=== PATIENT | male | born 1960 | race Two or more races ===

== ENCOUNTER 2018-09-22 20:10 | Inpatient (IN) | payer MEDICARE, MEDICAID ==
[~2018-09-22] VITALS: Ht 160 cm; Wt 65.3 kg
[2018-09-22 21:21] LABS: BASOPHILS % 0.6 % (0.0-2.0); EOSINOPHILS % 4.7 % (0.0-5.0); HEMATOCRIT. 37.9 % (42.0-52.0); HEMOGLOBIN. 12.2 g/dL (14.0-18.0); LYMPHOCYTES % 35.8 % (20.0-50.0); MEAN CORPUSCULAR HEMOGLOBIN 32.1 pg (28.0-32.0); MEAN CORPUSCULAR VOLUME 99.2 fL (80.0-94.0); MEAN PLATELET VOLUME 8.8 fl (7.4-10.4); MONOCYTES % 10.2 % (2.0-8.0); NEUTROPHILS % 48.7 % (40.0-76.0); PLATELET 185 x1000/uL (130-400); RED BLOOD CELL COUNT 3.82 mill/uL (4.7-6.1); RED CELL DISTRIBUTION WIDTH 15.1 % (11.6-14.6)
[2018-09-22 21:30] LABS: CHLORIDE 109 mEq/L (98-107)
[2018-09-22 21:34] LABS: ETHANOL BLOOD 296 mg/dL
[2018-09-22] MEDS ORDERED: SODIUM CHLORIDE 0.9% 1,000 ML IV ONE (22:11)
[2018-09-22] MEDS ORDERED: NALOXONE HCL 1 MG/ML 2ML VIAL IV ONE (22:15)
[2018-09-22 22:29] LABS: CLARITY URINE CLEAR (CLEAR); COLOR URINE YELLOW (YELLOW); KETONES URINE NEGATIVE (NEGATIVE); LEUKOCYTE ESTERASE URINE 2+ (NEGATIVE); NITRITE URINE POSITIVE (NEGATIVE); OCCULT BLOOD URINE 1+ (NEGATIVE); PROTEIN URINE NEGATIVE (NEGATIVE); SPECIFIC GRAVITY URINE 1.007 (1.005-1.030); UROBILINOGEN URINE 0.2 E.U./dL (0.2-1.0)
[2018-09-22 22:40] LABS: *AMPHETAMINES SCREEN URINE PRESUMTIVE POSITIVE (NEGATIVE); *BARBITURATES SCREEN URINE NEGATIVE (NEGATIVE); *BENZODIAZEPINES SCREEN URINE NEGATIVE (NEGATIVE); *COCAINE SCREEN URINE PRESUMTIVE POSITIVE (NEGATIVE); METHADONE URINE SCREEN NEGATIVE (NEGATIVE); OPIATES URINE SCREEN NEGATIVE (NEGATIVE)
[2018-09-22 22:41] LABS: CANNABINOID URINE SCREEN NEGATIVE (NEGATIVE); PHENCYCLIDINE URINE SCREEN NEGATIVE (NEGATIVE)
[2018-09-22] MEDS ORDERED: SODIUM CHLORIDE 0.9% 1000ML BAG (SEPSIS BOLUS) IV ONE (23:00)
[2018-09-22] MEDS ORDERED: CEFTRIAXONE 1 G PREMIX 50 ML IV ONE (23:00)
[2018-09-22] MEDS ORDERED: DIPHENHYDRAMINE 50MG/ML VIAL IV PRN (23:30)
[2018-09-22] MEDS ORDERED: ACETAMINOPHEN 325MG TABLET PO PRN (23:30)
[2018-09-22] MEDS ORDERED: LORAZEPAM 2MG/ML CPJ IV PRN (23:30)
[2018-09-22] MEDS ORDERED: HYDROCODONE/ACETAMINOPHEN 5/325MG TABLET PO PRN (23:30)
[2018-09-22] MEDS ORDERED: ONDANSETRON HCL 4MG/2ML INJ IV PRN (23:30)
[2018-09-22] MEDS ORDERED: DOCUSATE SODIUM 100MG CAPSULE PO PRN (23:30)
[2018-09-22] MEDS ORDERED: GUAIFENESIN 200MG/10ML SUGAR FREE UDC PO PRN (23:30)
[2018-09-22] MEDS ORDERED: MAGNESIUM/ALUMINUM HYDROXIDE/SIMETHICONE 30ML UDC PO PRN (23:30)
[2018-09-22] MEDS ORDERED: HYDROMORPHONE HCL/PF 2MG/ML CPJ IV PRN (23:30)
[2018-09-22] MEDS ORDERED: CLONIDINE 0.1MG TABLET PO PRN (23:30)
[2018-09-22] MEDS ORDERED: IPRATROPIUM/ALBUTEROL 0.5-3(2.5)MG/3ML NEB INH PRN (23:30)
[2018-09-23] VITALS (8 sets, daily range): BP systolic 124–157; BP diastolic 80–99
[2018-09-23] MEDS: DEXT 5%/0.45% NACL 1000ML 1,000 ML IV SCH ×2 (00:58→16:03)
[2018-09-23] MEDS ORDERED: CEFTRIAXONE 1 G PREMIX 50 ML IV SCH ×2 (01:00→21:00)
[2018-09-23] MEDS: SODIUM CHLORIDE 0.9% INJ 3ML FLUSH IVF SCH ×3 (05:49→21:53)
[2018-09-23 05:55] LABS: CHLORIDE 114 mEq/L (98-107)
[2018-09-23 06:04] LABS: CREATINE KINASE 303 IU/L (39-308); T4 FREE 0.88 ng/dL (0.76-1.46)
[2018-09-23 06:05] LABS: BASOPHILS % 0.9 % (0.0-2.0); EOSINOPHILS % 5.5 % (0.0-5.0); HEMATOCRIT. 31.6 % (42.0-52.0); HEMOGLOBIN. 10.5 g/dL (14.0-18.0); LYMPHOCYTES % 39.2 % (20.0-50.0); MEAN CORPUSCULAR HEMOGLOBIN 32.6 pg (28.0-32.0); MEAN CORPUSCULAR VOLUME 98.4 fL (80.0-94.0); MEAN PLATELET VOLUME 9.2 fl (7.4-10.4); MONOCYTES % 12.8 % (2.0-8.0); NEUTROPHILS % 41.6 % (40.0-76.0); PLATELET 152 x1000/uL (130-400); RED BLOOD CELL COUNT 3.21 mill/uL (4.7-6.1); RED CELL DISTRIBUTION WIDTH 15.1 % (11.6-14.6)
[2018-09-23 06:09] LABS: CREATINE KINASE MB FRACTION 3.1 ng/mL (0.5-3.6)
[2018-09-23] MEDS: ENOXAPARIN 40MG/0.4ML SYR SUBCUT SCH (08:53)
[2018-09-23 17:20] LABS: CREATINE KINASE 267 IU/L (39-308)
[2018-09-23 17:21] LABS: CREATINE KINASE MB FRACTION 3.1 ng/mL (0.5-3.6)
[2018-09-24] VITALS: BP 144/89
[2018-09-24 04:00] VITALS: BP 147/99
[2018-09-24 08:00] VITALS: BP 147/100
[2018-09-24] MEDS: ENOXAPARIN 40MG/0.4ML SYR SUBCUT SCH (08:35)
[2018-09-24 09:52] VITALS: BP 147/100
== END 2018-09-24 10:30 | disposition hospice, home (50) | DRG 92 ==
LOC: ER 20:10 → 6WST 22:50 → EDBEDREQTM 22:53 → EDBEDREQ 22:53 → ENRESERV 23:18
PROVIDERS: ADMIT Internal Medicine; ATTEND Internal Medicine
DX: G93.1 Anoxic brain damage, not elsewhere classified (principal); N39.0 Urinary tract infection, site not specified; C61 Malignant neoplasm of prostate; D64.9 Anemia, unspecified; F19.10 Other psychoactive substance abuse, uncomplicated; I10 Essential (primary) hypertension; I25.10 Atherosclerotic heart disease of native coronary artery without angina pectoris; Z51.5 Encounter for palliative care; Z85.46 Personal history of malignant neoplasm of prostate
CPT/HCPCS: 36415; 80305; 82550; 82553; 82962; 83605; 84439; 84443; 84484; 93005; 96374; 96375; 99291; G0482; J0696; J1650; J2310; J7030; J7040

== ENCOUNTER 2018-12-16 08:39 | Emergency (ER) | payer MEDICARE, MEDICAID ==
[~2018-12-16] VITALS: Ht 170.2 cm; Wt 73.0 kg
[2018-12-16 08:52] VITALS: BP 114/76
== END 2018-12-16 10:40 | disposition left against medical advice (07) ==
LOC: ER 08:39
DX: Z53.21 Procedure and treatment not carried out due to patient leaving prior to being seen by health care provider (principal); Z46.6 Encounter for fitting and adjustment of urinary device

== ENCOUNTER 2019-07-23 22:57 | Emergency (ER) | payer MEDICARE, MEDICAID ==
[~2019-07-23] VITALS: Ht 170.2 cm; Wt 77.0 kg
[2019-07-23 23:34] VITALS: BP 169/103
[2019-07-24] MEDS ORDERED: KETOROLAC 30MG/ML VIAL IM ONE (00:30)
[2019-07-24] MEDS ORDERED: CYCLOBENZAPRINE 10MG TABLET PO ONE (00:30)
== END 2019-07-24 01:16 | disposition home or self-care (01) ==
LOC: ER 22:57
DX: M54.5 Low back pain (principal); M54.2 Cervicalgia; I10 Essential (primary) hypertension; I25.2 Old myocardial infarction; Z87.81 Personal history of (healed) traumatic fracture; Z86.73 Personal history of transient ischemic attack (TIA), and cerebral infarction without residual deficits; Z85.46 Personal history of malignant neoplasm of prostate
CPT/HCPCS: 96372; 99283; J1885

== ENCOUNTER 2019-09-23 08:24 | Inpatient (IN) | payer MEDICARE, MEDICAID ==
[~2019-09-23] VITALS: Ht 170.2 cm; Wt 80.3 kg
[2019-09-23] MEDS ORDERED: SODIUM CHLORIDE 0.9% 1,000 ML IV ONE (09:23)
[2019-09-23 10:09] LABS: HEMATOCRIT. 30.4 % (42.0-52.0); HEMOGLOBIN. 9.5 g/dL (14.0-18.0); MEAN CORPUSCULAR HEMOGLOBIN 23.3 pg (28.0-32.0); MEAN CORPUSCULAR VOLUME 74.7 fL (80.0-94.0); MEAN PLATELET VOLUME 9.5 fl (7.4-10.4); PLATELET 131 x1000/uL (130-400); RED BLOOD CELL COUNT 4.06 mill/uL (4.7-6.1); RED CELL DISTRIBUTION WIDTH 22.3 % (11.6-14.6)
[2019-09-23 10:17] LABS: CHLORIDE 109 mEq/L (98-107); INR 1.1; PROTHROMBIN TIME 10.8 sec (9.6-11.0)
[2019-09-23 10:19] LABS: CLARITY URINE CLOUDY (CLEAR); COLOR URINE YELLOW (YELLOW); KETONES URINE NEGATIVE (NEGATIVE); LEUKOCYTE ESTERASE URINE 3+ (NEGATIVE); NITRITE URINE POSITIVE (NEGATIVE); OCCULT BLOOD URINE TRACE (NEGATIVE); PH URINE 7.5 (4.5-8.0); PROTEIN URINE NEGATIVE (NEGATIVE); SPECIFIC GRAVITY URINE 1.009 (1.005-1.030)
[2019-09-23] MEDS ORDERED: CEFTRIAXONE 1 G PREMIX 50 ML IV ONE (10:30)
[2019-09-23] MEDS ORDERED: IOHEXOL-300 100 ML BOTTLE ONE (11:37)
[2019-09-23 11:43] LABS: PLATELET ESTIMATE NORMAL
[2019-09-23] MEDS ORDERED: TRAMADOL 50MG TABLET PO PRN (14:00)
[2019-09-23] MEDS ORDERED: DOCUSATE SODIUM 100MG CAPSULE PO PRN (14:00)
[2019-09-23] MEDS ORDERED: ACETAMINOPHEN 325MG TABLET PO PRN (14:00)
[2019-09-23] MEDS ORDERED: NITROGLYCERIN 0.4MG TABLET SL SL PRN (14:00)
[2019-09-23] MEDS ORDERED: CLONIDINE 0.1MG TABLET PO PRN (14:00)
[2019-09-23] MEDS ORDERED: ZOLPIDEM TARTRATE 5MG TABLET PO PRN (14:00)
[2019-09-23] MEDS ORDERED: IPRATROPIUM/ALBUTEROL 0.5-3(2.5)MG/3ML NEB NEB PRN (14:00)
[2019-09-23] MEDS ORDERED: ONDANSETRON HCL 4MG/2ML INJ IV PRN (14:00)
[2019-09-23] MEDS ORDERED: LORAZEPAM 0.5MG TABLET PO PRN (14:00)
[2019-09-23] MEDS ORDERED: KETOROLAC 15MG/ML VIAL IV PRN (14:00)
[2019-09-23] MEDS ORDERED: GUAIFENESIN 200MG/10ML SUGAR FREE UDC PO PRN (14:00)
[2019-09-23] MEDS ORDERED: MAGNESIUM/ALUMINUM HYDROXIDE/SIMETHICONE 30ML UDC PO PRN (14:00)
[2019-09-23 15:00] VITALS: BP 156/93
[2019-09-23] MEDS ORDERED: POTASSIUM CHLORIDE 20MEQ TABLET SR PO NR (15:30)
[2019-09-23 16:00] VITALS: BP 156/93
[2019-09-23] MEDS ORDERED: ENOXAPARIN 40MG/0.4ML SYR SUBCUT SCH (16:00)
[2019-09-23] MEDS: MEROPENEM 1,000 MG in SODIUM CHLORIDE 0.9% 100 ML IV SCH (17:13)
[2019-09-23 17:21] LABS: CREATINE KINASE 157 IU/L (39-308)
[2019-09-23 17:22] LABS: CREATINE KINASE MB FRACTION 1.2 ng/mL (0.5-3.6)
[2019-09-23 17:39] LABS: FOLIC ACID (FOLATE) SERUM 13.4 ng/mL (>5.38)
[2019-09-23] MEDS: VANCOMYCIN 1250MG in DEXTROSE 5% WATER 250ML IV SCH (18:03)
[2019-09-23 20:00] VITALS: BP 134/76
[2019-09-23 20:03] LABS: *AMPHETAMINES SCREEN URINE NEGATIVE (NEGATIVE); *BARBITURATES SCREEN URINE NEGATIVE (NEGATIVE); *BENZODIAZEPINES SCREEN URINE NEGATIVE (NEGATIVE); *COCAINE SCREEN URINE NEGATIVE (NEGATIVE)
[2019-09-23 20:04] LABS: CANNABINOID URINE SCREEN NEGATIVE (NEGATIVE); METHADONE URINE SCREEN NEGATIVE (NEGATIVE); OPIATES URINE SCREEN NEGATIVE (NEGATIVE); PHENCYCLIDINE URINE SCREEN NEGATIVE (NEGATIVE)
[2019-09-23] MEDS: ASCORBIC ACID 500 MG TABLET PO SCH (20:24)
[2019-09-23] MEDS: FAMOTIDINE 20MG TABLET PO SCH (20:24)
[2019-09-24] VITALS: BP 133/83
[2019-09-24 00:26] LABS: CREATINE KINASE 166 IU/L (39-308); CREATINE KINASE MB FRACTION 1.3 ng/mL (0.5-3.6)
[2019-09-24] MEDS: MEROPENEM 1,000 MG in SODIUM CHLORIDE 0.9% 100 ML IV SCH ×2 (02:01→08:36)
[2019-09-24 04:00] VITALS: BP 169/89
[2019-09-24] MEDS: VANCOMYCIN 1250MG in DEXTROSE 5% WATER 250ML IV SCH (04:59)
[2019-09-24 08:00] VITALS: BP 145/83
[2019-09-24] MEDS: ASCORBIC ACID 500 MG TABLET PO SCH (08:37)
[2019-09-24] MEDS: FAMOTIDINE 20MG TABLET PO SCH (08:37)
[2019-09-24] MEDS ORDERED: ZINC SULFATE 220 MG ( 50 ) CAPSULE PO SCH (09:00)
[2019-09-24] MEDS ORDERED: AMLODIPINE 10MG TABLET PO SCH (09:00)
[2019-09-24 10:09] VITALS: BP 132/82
[2019-09-24] MEDS ORDERED: MEROPENEM 500MG in NORMAL SALINE 50ML IV SCH (18:00)
== END 2019-09-24 10:40 | disposition home or self-care (01) | DRG 690 ==
LOC: ER 08:24 → 6EST 12:51 → EDBEDREQTM 12:53 → EDBEDREQ 12:53 → ENRESERV 13:39 → SUPCPDRO 13:55
PROVIDERS: ADMIT Internal Medicine; ATTEND Internal Medicine
DX: N30.90 Cystitis, unspecified without hematuria (principal); D72.819 Decreased white blood cell count, unspecified; I10 Essential (primary) hypertension; D64.9 Anemia, unspecified; E87.6 Hypokalemia; Z85.46 Personal history of malignant neoplasm of prostate; Z92.3 Personal history of irradiation; Z86.73 Personal history of transient ischemic attack (TIA), and cerebral infarction without residual deficits
CPT/HCPCS: 36415; 74177; 80053; 80061; 80305; 81003; 82550; 82553; 82607; 82746; 83036; 83540; 83550; 83605; 84484; 85025; 87077; 87186; 93005; 93970; 99285; J0696; J1650; J2185; J3370; J7030; J7040; J7050; J7060; Q9967

== ENCOUNTER 2021-05-07 17:28 | Inpatient (IN) | payer MEDICARE, MEDICAID ==
[~2021-05-07] VITALS: Ht 165.1 cm; Wt 64.0 kg
[2021-05-07] MEDS ORDERED: VANCOMYCIN 1 G PREMIX 200 ML IV ONE (18:30)
[2021-05-07] MEDS ORDERED: PIPERACILLIN/TAZ 3.375G PREMIX 50 ML IV ONE (18:30)
[2021-05-07] MEDS ORDERED: SODIUM CHLORIDE 0.9% 1000ML BAG (SEPSIS BOLUS) IV ONE (18:30)
[2021-05-07 19:30] LABS: BASOPHILS % 0.1 % (0.0-2.0); EOSINOPHILS % 0.1 % (0.0-5.0); HEMATOCRIT. 27.9 % (42.0-52.0); HEMOGLOBIN. 9.5 g/dL (14.0-18.0); LYMPHOCYTES % 7.7 % (20.0-50.0); MEAN CORPUSCULAR HEMOGLOBIN 31.1 pg (28.0-32.0); MEAN CORPUSCULAR VOLUME 91.2 fL (80.0-94.0); MEAN PLATELET VOLUME 9.1 fl (7.4-10.4); MONOCYTES % 10.9 % (2.0-8.0); NEUTROPHILS % 81.2 % (40.0-76.0); PLATELET 137 x1000/uL (130-400); RED BLOOD CELL COUNT 3.06 mill/uL (4.7-6.1)
[2021-05-07 19:34] LABS: CHLORIDE 93 mEq/L (98-107); INR 1.4; PROTHROMBIN TIME 14.5 sec (9.6-11.0)
[2021-05-07 20:02] LABS: CLARITY URINE TURBID (CLEAR); COLOR URINE DARK YELLOW (YELLOW); KETONES URINE NEGATIVE (NEGATIVE); LEUKOCYTE ESTERASE URINE 3+ (NEGATIVE); NITRITE URINE NEGATIVE (NEGATIVE); OCCULT BLOOD URINE 3+ (NEGATIVE); PROTEIN URINE 4+ (NEGATIVE); SPECIFIC GRAVITY URINE 1.036 (1.005-1.030); UROBILINOGEN URINE 0.2 E.U./dL (0.2-1.0)
[2021-05-07] MEDS ORDERED: CLONIDINE 0.1MG TABLET PO PRN (22:30)
[2021-05-07] MEDS ORDERED: ACETAMINOPHEN 325MG TABLET PO PRN ×2 (22:30)
[2021-05-07] MEDS ORDERED: ONDANSETRON HCL 4MG/2ML INJ IV PRN (22:30)
[2021-05-07] MEDS ORDERED: DIPHENHYDRAMINE 50MG/ML VIAL IV PRN (22:30)
[2021-05-07] MEDS ORDERED: NALOXONE HCL 0.4MG/ML VIAL IV PRN (22:45)
[2021-05-07] MEDS: SODIUM CHLORIDE 0.9% 1,000 ML IV SCH (22:54)
[2021-05-08] VITALS (13 sets, daily range): BP systolic 118–145; BP diastolic 67–86
[2021-05-08] MEDS ORDERED: CEFEPIME 1,000 MG in DEXTROSE 5% WATER 50 ML IV SCH (01:00)
[2021-05-08] MEDS: OMEPRAZOLE 20MG CAPSULE EXTENDED RELEASE PO SCH (06:29)
[2021-05-08] MEDS: AMLODIPINE 5MG TABLET PO SCH ×2 (09:32→20:27)
[2021-05-08] MEDS: ENOXAPARIN 30MG/0.3ML SYR SUBCUT SCH (09:33)
[2021-05-08] MEDS: SODIUM CHLORIDE 0.9% 1,000 ML IV SCH ×2 (11:18→19:49)
[2021-05-09] VITALS (16 sets, daily range): BP systolic 109–139; BP diastolic 65–99
[2021-05-09] MEDS ORDERED: CEFEPIME 1,000 MG in DEXTROSE 5% WATER 50 ML IV SCH (01:30)
[2021-05-09] MEDS: SODIUM CHLORIDE 0.9% 1,000 ML IV SCH ×2 (05:02→16:11)
[2021-05-09] MEDS: HYDROCODONE/ACETAMINOPHEN 10/325MG TABLET PO PRN ×3 (05:03→16:13)
[2021-05-09] MEDS: OMEPRAZOLE 20MG CAPSULE EXTENDED RELEASE PO SCH (06:28)
[2021-05-09] MEDS: AMLODIPINE 5MG TABLET PO SCH ×2 (09:10→21:24)
[2021-05-09] MEDS: ENOXAPARIN 30MG/0.3ML SYR SUBCUT SCH (09:10)
[2021-05-09 09:37] LABS: MEAN CORPUSCULAR HEMOGLOBIN 31.1 pg (28.0-32.0); MEAN CORPUSCULAR VOLUME 91.3 fL (80.0-94.0); MEAN PLATELET VOLUME 8.4 fl (7.4-10.4); PLATELET 85 x1000/uL (130-400); RED BLOOD CELL COUNT 2.16 mill/uL (4.7-6.1); RED CELL DISTRIBUTION WIDTH 20.3 % (11.6-14.6)
[2021-05-09] MEDS ORDERED: APAL60TA PO (09:38)
[2021-05-09] MEDS ORDERED: ATOR20TA65 MT (09:38)
[2021-05-09] MEDS ORDERED: MORP10CA8 PO (09:38)
[2021-05-09] MEDS ORDERED: TRAM50TA3 MT (09:38)
[2021-05-09 09:42] LABS: HEMATOCRIT. 19.7 % (42.0-52.0); HEMOGLOBIN. 6.7 g/dL (14.0-18.0)
[2021-05-09 11:01] LABS: CHLORIDE 103 mEq/L (98-107)
[2021-05-09 11:39] LABS: HEMATOCRIT 19.4 % (42.0-52.0); HEMOGLOBIN 6.6 g/dL (14.0-18.0)
[2021-05-09] MEDS ORDERED: POTASSIUM CHLORIDE 20MEQ TABLET SR PO NR ×2 (12:00→16:00)
[2021-05-09] MEDS: CEFEPIME 1,000 MG in DEXTROSE 5% WATER 50 ML IV SCH (16:10)
[2021-05-09] MEDS: SULFAMETHOXAZOLE/TRIMETHOPRIM 800/160MG TABLET PO SCH (17:14)
[2021-05-09 17:58] LABS: PLATELET ESTIMATE DECREASED
[2021-05-09] MEDS: MORPHINE SULFATE 15MG TABLET SR PO SCH (21:24)
[2021-05-10] VITALS (12 sets, daily range): BP systolic 114–137; BP diastolic 42–83
[2021-05-10] MEDS: SODIUM CHLORIDE 0.9% 1,000 ML IV SCH ×3 (02:55→20:53)
[2021-05-10] MEDS: CEFEPIME 1,000 MG in DEXTROSE 5% WATER 50 ML IV SCH ×2 (02:55→14:40)
[2021-05-10] MEDS: OMEPRAZOLE 20MG CAPSULE EXTENDED RELEASE PO SCH (05:54)
[2021-05-10] MEDS: HYDROCODONE/ACETAMINOPHEN 10/325MG TABLET PO PRN (07:06)
[2021-05-10 07:22] LABS: HEMATOCRIT. 23.3 % (42.0-52.0); HEMOGLOBIN. 7.7 g/dL (14.0-18.0); MEAN CORPUSCULAR HEMOGLOBIN 30.3 pg (28.0-32.0); MEAN CORPUSCULAR VOLUME 91.6 fL (80.0-94.0); MEAN PLATELET VOLUME 9.2 fl (7.4-10.4); PLATELET 93 x1000/uL (130-400); RED BLOOD CELL COUNT 2.55 mill/uL (4.7-6.1); RED CELL DISTRIBUTION WIDTH 19.3 % (11.6-14.6)
[2021-05-10 07:26] LABS: CHLORIDE 104 mEq/L (98-107)
[2021-05-10] MEDS: SULFAMETHOXAZOLE/TRIMETHOPRIM 800/160MG TABLET PO SCH ×2 (08:15→20:57)
[2021-05-10] MEDS: AMLODIPINE 5MG TABLET PO SCH ×2 (08:15→20:58)
[2021-05-10] MEDS: MORPHINE SULFATE 15MG TABLET SR PO SCH ×2 (08:16→20:58)
[2021-05-10] MEDS: POTASSIUM CHLORIDE 20MEQ TABLET SR PO SCH ×3 (11:34→16:00)
[2021-05-10] MEDS: MORPHINE SULFATE 4 MG/ML CPJ (NOT FOR IM USE) IV PRN ×2 (11:35→18:03)
[2021-05-10] MEDS ORDERED: POTASSIUM CHLORIDE 20MEQ TABLET SR PO ONE ×2 (13:00→14:00)
[2021-05-10] MEDS ORDERED: MAGNESIUM 2 G PREMIX 50 ML IV SCH ×2 (14:30→16:00)
[2021-05-10] MEDS ORDERED: POTASSIUM CHLORIDE 20MEQ TABLET SR PO NR (18:00)
[2021-05-10 21:29] LABS: PLATELET ESTIMATE DECREASED
[2021-05-11] VITALS (13 sets, daily range): BP systolic 98–129; BP diastolic 56–86
[2021-05-11] MEDS: MORPHINE SULFATE 4 MG/ML CPJ (NOT FOR IM USE) IV PRN ×2 (00:44→14:20)
[2021-05-11] MEDS: CEFEPIME 1,000 MG in DEXTROSE 5% WATER 50 ML IV SCH ×2 (03:20→14:19)
[2021-05-11] MEDS: OMEPRAZOLE 20MG CAPSULE EXTENDED RELEASE PO SCH (06:10)
[2021-05-11] MEDS: SODIUM CHLORIDE 0.9% 1,000 ML IV SCH ×2 (06:11→17:53)
[2021-05-11 08:08] LABS: HEMATOCRIT. 21.5 % (42.0-52.0); HEMOGLOBIN. 7.6 g/dL (14.0-18.0); MEAN CORPUSCULAR HEMOGLOBIN 31.8 pg (28.0-32.0); MEAN CORPUSCULAR VOLUME 90.2 fL (80.0-94.0); PLATELET 95 x1000/uL (130-400); RED BLOOD CELL COUNT 2.38 mill/uL (4.7-6.1)
[2021-05-11] MEDS: SULFAMETHOXAZOLE/TRIMETHOPRIM 800/160MG TABLET PO SCH ×2 (08:28→20:03)
[2021-05-11] MEDS: AMLODIPINE 5MG TABLET PO SCH (08:29)
[2021-05-11] MEDS: MORPHINE SULFATE 15MG TABLET SR PO SCH ×2 (08:29→20:03)
[2021-05-11 08:37] LABS: CHLORIDE 108 mEq/L (98-107)
[2021-05-11] MEDS: HYDROCODONE/ACETAMINOPHEN 10/325MG TABLET PO PRN (10:16)
[2021-05-11] MEDS ORDERED: POTASSIUM CHLORIDE 20MEQ TABLET SR PO SCH (14:00)
[2021-05-11] MEDS ORDERED: MAGNESIUM 2 G PREMIX 50 ML IV SCH (15:00)
[2021-05-11] MEDS ORDERED: POTASSIUM PHOS,M-BASIC-D-BASIC 20 MMOL in DEXT 5% WATER 250 ML IV SCH ×2 (15:00→17:00)
[2021-05-11 19:00] LABS: PLATELET ESTIMATE DECREASED
== END 2021-05-11 21:04 | DRG 871 ==
LOC: ER 17:28 → MICUSO 20:26 → EDBEDREQSVC 20:44 → EDBEDREQ 20:44 → EDBEDREQTM 20:44 → 3WST 23:40
PROVIDERS: ADMIT Internal Medicine; ATTEND Internal Medicine
PROC: 30233N1 Transfusion of Nonautologous Red Blood Cells into Peripheral Vein, Percutaneous Approach (ICD-10-PCS; principal; 2021-05-09)
DX: A41.9 Sepsis, unspecified organism (principal); N17.0 Acute kidney failure with tubular necrosis; R71.0 Precipitous drop in hematocrit; N39.0 Urinary tract infection, site not specified; E11.9 Type 2 diabetes mellitus without complications; E87.6 Hypokalemia; G89.29 Other chronic pain; I10 Essential (primary) hypertension; R65.20 Severe sepsis without septic shock; E83.42 Hypomagnesemia; M54.5 Low back pain; Z20.822 Contact with and (suspected) exposure to COVID-19; C61 Malignant neoplasm of prostate; B96.5 Pseudomonas (aeruginosa) (mallei) (pseudomallei) as the cause of diseases classified elsewhere; B95.7 Other staphylococcus as the cause of diseases classified elsewhere; Z85.51 Personal history of malignant neoplasm of bladder
CPT/HCPCS: 36415; 71045; 78582; 80048; 80053; 81003; 83605; 83735; 84100; 84145; 84484; 85014; 85018; 85025; 86850; 86900; 86920; 87077; 87186; 87426; 93005; 97161; 99291; J0692; J1650; J2270; J2543; J3370; J3475; J3490; J7030; J7040; J7060; P9016